=== PATIENT | female | born 1975 | race African-American/Black ===

== ENCOUNTER 2016-05-14 19:25 | Emergency (ER) | payer MEDICAID, SELFPAY ==
[~2016-05-14 19:25] MED LIST: Sodium Chloride 0.9% 1,000 ML BAG ONE
[2016-05-14 21:21] LABS: ALT (SGPT) 14 U/L (0-55); AST (SGOT) 16 U/L (5-34); Albumin 3.4 g/dL (3.5-5.0); Alkaline Phosphatase 79 U/L (40-150); Anion Gap 15 mmol/L (10-20); BUN (Urea Nitrogen) 8 mg/dL (7.0-18.7); Bilirubin, Total 0.5 mg/dL (0.2-1.2); Calc. Creatinine Clearance 0 mL/min (70-130); Calcium 8.8 mg/dL (7.8-10.44); Carbon Dioxide 22 mmol/L (22-29); Chloride 102 mmol/L (98-107); Estimated GFR-MDRD 87; Globulin 3.5 g/dL (2.4-3.5); Glucose 265 mg/dL (70-105); Lipase 19 U/L (8-78); Potassium 3.9 mmol/L (3.5-5.1); Protein, Total 6.9 g/dL (6.0-8.3); Sodium 135 mmol/L (136-145)
[2016-05-14 21:22] LABS: CKMB 0.9 ng/mL (0-6.6); Troponin I Less than 0.010 ng/mL (< 0.028)
[2016-05-14 21:36] LABS: #Basophils 0.1 thou/uL (0.0-0.2); #Eosinphils 0.2 thou/uL (0.0-0.7); #Lymphocytes 3.5 thou/uL (1.20-3.40); #Monocytes 0.5 thou/uL (0.11-0.59); #Neutrophils 5.6 thou/uL (1.40-6.50); %Basophils 0.7 % (0.0-1.0); %Lymphocytes 35.5 % (21.0-51.0); %Monocytes 4.8 % (0.0-10.0); %Neutrophils 57.1 % (42.0-75.0); Hemoglobin 10.9 g/dL (12.0-16.0); MDiff Complete? YES; Mean Corpuscular HGB CONC 30.3 g/dL (32.0-36.0); Mean Corpuscular Hemoglobin 18.7 pg (27.0-31.0); Mean Corpuscular Volume 61.7 fl (81.0-99.0); Mean Platelet Volume 6.9 fL (7.4-10.4); Microcytosis SLIGHT = 6-15 cells (100X) (0-5/hpf); Platelet Count 473 thou/uL (130-400); Polychromasia SLIGHT = 2-3 cells (100X) (0-2/hpf); RBC Distribution Width 14.9 % (11.5-14.5); Red Blood Cell (RBC) Count 5.84 mill/uL (4.20-5.40); White Blood Cell (WBC) Count 9.8 thou/uL (4.8-10.8)
[2016-05-14] MEDS ORDERED: Potassium Chloride 20 MEQ TAB ONE (21:58)
[2016-05-14] MEDS ORDERED: Insulin Regular 300 UNITS/3 ML VIAL ONE (21:58)
[2016-05-14] MEDS ORDERED: Ketorolac Tromethamine 30 MG/ML VIAL ONE (21:58)
--- NOTE | 2016-05-14 22:07 | RAD ---
TWO VIEWS CHEST: 05/14/16 HISTORY: 40-year-old with history of chest pain. PA and lateral views of the chest obtained on 05/14/16. Comparison made to previous exam from 04/06/15. Two views chest demonstrate the lungs to be well aerated. No evidence of active intrathoracic diseas e seen. No evidence of effusions, pneumonia, or pneumothorax seen. IMPRESSION: Unremarkable two views chest. POS: [facility]
[2016-05-14] MEDS ORDERED: Acetaminophen/Codeine 30-300mg Tablet ONE ×2 (22:49)
== END 2016-05-14 22:55 | disposition home or self-care (01) ==
LOC: MADERS 19:25
DX: R07.9 Chest pain, unspecified (principal); E11.65 Type 2 diabetes mellitus with hyperglycemia; Z91.14 Patient's other noncompliance with medication regimen; I10 Essential (primary) hypertension; Z87.891 Personal history of nicotine dependence; Z79.84 Long term (current) use of oral hypoglycemic drugs
CPT/HCPCS: 36416; 71020; 80053; 82553; 83690; 84484; 85025; 85379; 93005; 96361; 96372; 96374; J1815; J1885; J7050

== ENCOUNTER 2016-05-16 10:38 | Outpatient (CLI) | payer MEDICAID ==
[2016-05-16 11:10] LABS: Hemoglobin A1c 10.4 % (4.0-6.0)
[2016-05-16 11:24] LABS: #Basophils 0.1 thou/uL (0.0-0.2); #Eosinphils 0.2 thou/uL (0.0-0.7); #Monocytes 0.4 thou/uL (0.11-0.59); %Basophils 0.7 % (0.0-1.0); %Eosinophils 1.9 % (0.0-10.0); %Lymphocytes 34.3 % (21.0-51.0); %Monocytes 4.9 % (0.0-10.0); %Neutrophils 58.2 % (42.0-75.0); Anisocytosis SLIGHT = 6-15 cells (100X) (0-5/hpf); Hemoglobin 11.6 g/dL (12.0-16.0); Hypochromia SLIGHT = 6-15 cells (100X) (0-5/hpf); MDiff Complete? YES; Mean Corpuscular HGB CONC 30.2 g/dL (32.0-36.0); Mean Corpuscular Hemoglobin 18.8 pg (27.0-31.0); Mean Corpuscular Volume 62.1 fl (81.0-99.0); Mean Platelet Volume 6.9 fL (7.4-10.4); PLT Morphology Comment Appears Increased; Platelet Count 506 thou/uL (130-400); RBC Distribution Width 15.3 % (11.5-14.5); White Blood Cell (WBC) Count 8.6 thou/uL (4.8-10.8)
[2016-05-16 11:33] LABS: ALT (SGPT) 16 U/L (0-55); AST (SGOT) 15 U/L (5-34); Albumin 3.5 g/dL (3.5-5.0); Alkaline Phosphatase 80 U/L (40-150); Anion Gap 12 mmol/L (10-20); BUN (Urea Nitrogen) 9 mg/dL (7.0-18.7); Bilirubin, Total 0.3 mg/dL (0.2-1.2); Calc. Creatinine Clearance 0 mL/min (70-130); Calcium 9.3 mg/dL (7.8-10.44); Carbon Dioxide 23 mmol/L (22-29); Cardiac Risk 5.3 (Less than 4.5); Chloride 102 mmol/L (98-107); Cholesterol 206 mg/dL (< 200 Desired); Estimated GFR-MDRD Greater than 90; Globulin 3.8 g/dL (2.4-3.5); Glucose 243 mg/dL (70-105); HDL Cholesterol 39 mg/dL (>60 Neg Risk); LDL Cholesterol, Calculated 132 mg/dL; Potassium 4.1 mmol/L (3.5-5.1); Protein, Total 7.3 g/dL (6.0-8.3); Sodium 133 mmol/L (136-145); Triglycerides 176 mg/dL (Less than 150)
[2016-05-16 11:53] LABS: Thyroid Stimulating Hormone 0.9032 uIU/mL (0.35-4.94); Vitamin D, 25 Hydroxy Less than 13.0 ng/mL (> 30.0)
[2016-05-16 11:54] LABS: Bilirubin Negative (Negative); Blood, Urine Small (Negative); Clarity Clear (Clear); Glucose, Urine (Dipstick) >=1000 mg/dL (Negative); Leukocyte Negative (Negative); Nitrite Negative (Negative); Protein, Urine (Dipstick) 100 mg/dL (Neg-Trace)
[2016-05-16 12:08] LABS: Bacteria/HPF Rare-Few HPF (None Seen)
[2016-05-16 17:58] LABS: Creatinine, Urine 178.06 mg/dL (47-110)
[2016-05-16 18:00] LABS: Microalbumin Urine 92.8 mg/dL (0.5-50.0); Microalbumin/Creat Ratio 521.2 mg/g (Less than 30)
== END 2016-05-16 10:39 | disposition home or self-care (01) ==
LOC: MADLABBHPM 10:38
PROVIDERS: ATTEND Family Medicine
DX: E11.9 Type 2 diabetes mellitus without complications (principal); N92.0 Excessive and frequent menstruation with regular cycle; I10 Essential (primary) hypertension; N94.6 Dysmenorrhea, unspecified
CPT/HCPCS: 36415; 80053; 80061; 81001; 82043; 82306; 83036; 84443; 85025

== ENCOUNTER 2016-06-20 19:40 | Emergency (ER) | payer MEDICAID, SELFPAY ==
[2016-06-20] MEDS ORDERED: Metoclopramide HCl 10 MG/2 ML VIAL ONE (20:42)
[2016-06-20] MEDS ORDERED: Ketorolac Tromethamine 30 MG/ML VIAL ONE (20:42)
[2016-06-20] MEDS ORDERED: Metoclopramide HCl 10 MG TAB ONE (20:42)
[2016-06-20] MEDS ORDERED: diphenhydrAMINE HCl 50 MG/ML 1 ML VIAL ONE (20:42)
[2016-06-20] MEDS ORDERED: Ondansetron HCl/PF 4 MG/2 ML Vial ONE (20:42)
== END 2016-06-20 22:05 | disposition home or self-care (01) ==
LOC: MADERS 19:40
DX: R51 Headache (principal); E11.9 Type 2 diabetes mellitus without complications; I10 Essential (primary) hypertension; E66.9 Obesity, unspecified; Z79.899 Other long term (current) drug therapy; Z79.84 Long term (current) use of oral hypoglycemic drugs; Z91.14 Patient's other noncompliance with medication regimen; Z87.891 Personal history of nicotine dependence
CPT/HCPCS: 96374; 96375; J1200; J1885; J2405; J2765; J7050

== ENCOUNTER 2017-02-04 21:35 | Emergency (ER) | payer MEDICAID, SELFPAY ==
[2017-02-04 22:40] LABS: Anion Gap 16 mmol/L (10-20); BUN (Urea Nitrogen) 9 mg/dL (7.0-18.7); Calc. Creatinine Clearance 0 mL/min (70-130); Calcium 8.9 mg/dL (7.8-10.44); Carbon Dioxide 23 mmol/L (22-29); Estimated GFR-MDRD Greater than 90; Glucose 376 mg/dL (70-105)
[2017-02-04 22:44] LABS: Anisocytosis SLIGHT = 6-15 cells (100X) (0-5/hpf); CKMB 1.1 ng/mL (0-6.6); Eosinophils 2 % (0-10); Hemoglobin 10.8 g/dL (12.0-16.0); Hypochromia MODERATE=16-30 cells (100X) (0-5/hpf); Lymphocytes 44 % (21-51); MDiff Complete? YES; Mean Corpuscular HGB CONC 29.9 g/dL (32.0-36.0); Mean Corpuscular Hemoglobin 18.7 pg (27.0-31.0); Mean Corpuscular Volume 62.6 fl (81.0-99.0); Mean Platelet Volume 6.8 fL (7.4-10.4); Microcytosis SLIGHT = 6-15 cells (100X) (0-5/hpf); Monocytes 3 % (0-10); Neutrophil 51 % (42-75); Ovalocytes SLIGHT = 2-5 cells (100X) (0-1/hpf); PLT Morphology Comment Appears Adequate; Platelet Count 494 thou/uL (130-400); Poikilocytosis SLIGHT = 6-15 cells (100X) (0-5/hpf); RBC Morphology Abnormal; Red Blood Cell (RBC) Count 5.79 mill/uL (4.20-5.40); Troponin I Less than 0.010 ng/mL (< 0.028); White Blood Cell (WBC) Count 8.9 thou/uL (4.8-10.8)
[2017-02-04 22:49] LABS: Chloride 101 mmol/L (98-107); Potassium 4.6 mmol/L (3.5-5.1); Sodium 135 mmol/L (136-145)
[2017-02-04 22:53] LABS: Bilirubin Negative (Negative); Blood, Urine Negative (Negative); Clarity Clear (Clear); Glucose, Urine (Dipstick) 500 mg/dL (Negative); Leukocyte Negative (Negative); Nitrite Negative (Negative); Pregnancy Test - Urine (BHCG) Negative (Negative); Pregu Control Background? CLEAR/WHITE (CLR/WHITE); Pregu Control Bar Appear? YES (CONTROL BAR); Protein, Urine (Dipstick) 100 mg/dL (Neg-Trace)
[2017-02-04] MEDS ORDERED: Morphine 4 MG/ML VIAL ONE (22:56)
[2017-02-04 22:59] LABS: Bacteria/HPF None Seen HPF (None Seen); Squamous Epithelial 0-3 HPF (0-3)
--- NOTE | 2017-02-04 23:04 | RAD ---
TWO VIEWS CHEST: 02/04/17 HISTORY: Chest pain. PA and lateral views of the chest is obtained on 02/04/17. Comparison made to previous exam from 05/14/16. Two view chest demonstrates the lungs to be well aerated. No evidence of active intrathoracic disease is seen. No evidence of effusions, pneumonia or pneumothorax seen. IMPRESSION: Normal two views chest. POS: [facility]
[2017-02-05] MEDS ORDERED: Acetaminophen 325 MG TAB ONE (00:04)
[2017-02-05] MEDS ORDERED: HYDROcodone/Acetaminophen 10/325 mg Tablet ONE (00:04)
== END 2017-02-05 00:10 | disposition home or self-care (01) ==
LOC: MADERS 21:35
DX: R07.89 Other chest pain (principal); M54.6 Pain in thoracic spine; R10.9 Unspecified abdominal pain; E11.9 Type 2 diabetes mellitus without complications; I10 Essential (primary) hypertension; F17.210 Nicotine dependence, cigarettes, uncomplicated; Z79.84 Long term (current) use of oral hypoglycemic drugs; Z79.899 Other long term (current) drug therapy
CPT/HCPCS: 71020; 80048; 81003; 81015; 81025; 82553; 84484; 85025; 85379; 96374; J2270

== ENCOUNTER 2017-03-10 08:27 | Emergency (ER) | payer MEDICAID | END 2017-03-10 09:05 | disposition home or self-care (01) | LOC: MADERS 08:27 | DX: J11.1 Influenza due to unidentified influenza virus with other respiratory manifestations (principal); E11.9 Type 2 diabetes mellitus without complications; I10 Essential (primary) hypertension; F17.210 Nicotine dependence, cigarettes, uncomplicated; Z79.84 Long term (current) use of oral hypoglycemic drugs; Z79.899 Other long term (current) drug therapy | CPT/HCPCS: 99283 ==

== ENCOUNTER 2017-09-19 04:18 | Emergency (ER) | payer SELFPAY ==
[2017-09-19] MEDS ORDERED: Lidocaine 1% 20 ML MDV ONE (04:41)
[2017-09-19] MEDS ORDERED: Sulfameth/Trimethoprim DS 800-160mg TAB ONE (04:54)
[2017-09-19] MEDS ORDERED: Ondansetron ODT 4 MG TAB ONE (04:54)
== END 2017-09-19 05:08 | disposition home or self-care (01) ==
LOC: MADERS 04:18
DX: L02.411 Cutaneous abscess of right axilla (principal); E11.9 Type 2 diabetes mellitus without complications; I10 Essential (primary) hypertension; F17.210 Nicotine dependence, cigarettes, uncomplicated
CPT/HCPCS: 10060; 87070; 87077; 87186; 87205; J2001; Q0162

== ENCOUNTER 2017-11-09 08:40 | Emergency (ER) | payer SELFPAY | END 2017-11-09 09:15 | disposition home or self-care (01) | LOC: MADERS 08:40 | DX: K59.00 Constipation, unspecified (principal); E11.9 Type 2 diabetes mellitus without complications; I10 Essential (primary) hypertension; F17.210 Nicotine dependence, cigarettes, uncomplicated; Z79.899 Other long term (current) drug therapy; Z79.84 Long term (current) use of oral hypoglycemic drugs | CPT/HCPCS: 99281 ==

== ENCOUNTER 2018-04-07 09:55 | Emergency (ER) | payer SELFPAY | END 2018-04-07 11:05 | disposition home or self-care (01) | LOC: MADERS 09:55 | DX: M54.41 Lumbago with sciatica, right side (principal); E11.9 Type 2 diabetes mellitus without complications; I10 Essential (primary) hypertension; F17.210 Nicotine dependence, cigarettes, uncomplicated; Z79.84 Long term (current) use of oral hypoglycemic drugs; Z79.899 Other long term (current) drug therapy | CPT/HCPCS: 99281 ==

== ENCOUNTER 2018-07-21 12:51 | Emergency (ER) | payer SELFPAY ==
[2018-07-21 15:45] LABS: Prothrombin Time 13.6 SEC (12.0-14.7)
[2018-07-21 15:57] LABS: ALT (SGPT) 12 U/L (8-55); AST (SGOT) 12 U/L (5-34); Albumin 3.5 g/dL (3.5-5.0); Alkaline Phosphatase 73 U/L (40-150); Anion Gap 12 mmol/L (10-20); BUN (Urea Nitrogen) 9 mg/dL (7.0-18.7); Bilirubin, Total 0.9 mg/dL (0.2-1.2); Calc. Creatinine Clearance 0 mL/min (70-130); Calcium 8.9 mg/dL (7.8-10.44); Carbon Dioxide 27 mmol/L (22-29); Chloride 100 mmol/L (98-107); Estimated GFR-MDRD 80; Globulin 3.9 g/dL (2.4-3.5); Glucose 240 mg/dL (70-105); Potassium 3.9 mmol/L (3.5-5.1); Protein, Total 7.4 g/dL (6.0-8.3); Sodium 135 mmol/L (136-145)
[2018-07-21 16:04] LABS: #Basophils 0.1 thou/uL (0.0-0.2); #Monocytes 0.4 thou/uL (0.11-0.59); #Neutrophils 10.2 thou/uL (1.40-6.50); %Eosinophils 0.2 % (0.0-10.0); %Lymphocytes 8.7 % (21.0-51.0); %Neutrophils 87.1 % (42.0-75.0); Hemoglobin 11.7 g/dL (12.0-16.0); MDiff Complete? YES; Mean Corpuscular HGB CONC 29.2 g/dL (32.0-36.0); Mean Corpuscular Hemoglobin 18.5 pg (27.0-31.0); Mean Corpuscular Volume 63.3 fL (78.0-98.0); Mean Platelet Volume 6.3 fL (7.4-10.4); Microcytosis SLIGHT = 6-15 cells (100X) (0-5/hpf); Platelet Count 413 thou/uL (130-400); Polychromasia SLIGHT = 2-3 cells (100X) (0-2/hpf); RBC Distribution Width 15.2 % (11.5-14.5); Red Blood Cell (RBC) Count 6.34 mill/uL (4.20-5.40); White Blood Cell (WBC) Count 11.8 thou/uL (4.8-10.8)
--- NOTE | 2018-07-21 16:30 | RAD ---
CHEST ONE VIEW: 07/21/18 INDICATION: Weakness and dizziness. COMPARISON: Prior exam dated 02/04/17. FINDINGS: The lungs are clear. Heart size is normal. No acute osseous abnormality is evident. IMPRESSION: No acute cardiopulmonary abnormality. POS: [facility]
[2018-07-21] MEDS ORDERED: Morphine 10 MG/ML VIAL ONE (17:44)
[2018-07-21] MEDS ORDERED: Metoclopramide HCl 10 MG/2 ML VIAL ONE (17:45)
[2018-07-21] MEDS ORDERED: methylPREDNISolone Sod Succ/PF 125 MG/2 ML VIAL ONE (17:45)
[2018-07-21 18:06] LABS: BHCG - Serum Negative (NEGATIVE); Pregs Control Background? CLEAR/WHITE (CLR/WHITE); Pregs Control Bar Appear? YES (CONTROL BAR)
[2018-07-21] MEDS ORDERED: Ketorolac Tromethamine 30 MG/ML VIAL ONE (19:21)
[2018-07-21] MEDS ORDERED: Morphine 4 MG/ML VIAL ONE (19:21)
== END 2018-07-21 19:32 | disposition home or self-care (01) ==
LOC: MADERS 12:51
DX: B34.9 Viral infection, unspecified (principal); I10 Essential (primary) hypertension; E11.9 Type 2 diabetes mellitus without complications; F17.210 Nicotine dependence, cigarettes, uncomplicated; Z79.84 Long term (current) use of oral hypoglycemic drugs; Z79.899 Other long term (current) drug therapy
CPT/HCPCS: 36415; 71045; 80053; 83880; 84484; 84703; 85025; 85610; 93005; 96374; 96375; 96376; J1885; J2270; J2765; J2930

== ENCOUNTER 2019-02-07 14:24 | Emergency (ER) | payer SELFPAY ==
[2019-02-07 14:45] LABS: Bilirubin Small (Negative); Blood, Urine Large (Negative); Clarity Slightly Cloudy (Clear); Glucose, Urine (Dipstick) >=1000 mg/dL (Negative); Leukocyte Negative (Negative); Nitrite Positive (Negative); Protein, Urine (Dipstick) > or equal to 300 mg/dL (Neg-Trace)
[2019-02-07 14:48] LABS: Pregnancy Test - Urine (BHCG) Negative (Negative); Pregu Control Background? CLEAR/WHITE (CLR/WHITE); Pregu Control Bar Appear? YES (CONTROL BAR)
[2019-02-07 15:02] LABS: Bacteria/HPF 1+ HPF (None Seen); RBC/HPF Greater than 50 HPF (0-3); Squamous Epithelial None Seen HPF (0-3); WBC/HPF Greater Than 50 HPF (0-3)
[2019-02-07] MEDS ORDERED: cefTRIAXone\\ROCEPHIN 1 GM VIAL ONE (15:13)
== END 2019-02-07 15:46 | disposition home or self-care (01) ==
LOC: MADERS 14:24
DX: N12 Tubulo-interstitial nephritis, not specified as acute or chronic (principal); I10 Essential (primary) hypertension; E11.9 Type 2 diabetes mellitus without complications; F17.210 Nicotine dependence, cigarettes, uncomplicated; Z79.899 Other long term (current) drug therapy; Z79.84 Long term (current) use of oral hypoglycemic drugs
CPT/HCPCS: 81003; 81015; 81025; 96372; 99284; J0696

== ENCOUNTER 2019-10-15 16:24 | Emergency (ER) | payer SELFPAY ==
[2019-10-15] MEDS ORDERED: Lidocaine 1% w/Epinephrine 1:100K 20 ML VIAL ONE (16:48)
[2019-10-15] MEDS ORDERED: Ibuprofen 800 MG TAB ONE (17:18)
[2019-10-15] MEDS ORDERED: Acetaminophen 500 MG TAB ONE (17:18)
[2019-10-15] MEDS ORDERED: Clindamycin 150 MG CAP ONE (17:18)
== END 2019-10-15 17:25 | disposition home or self-care (01) ==
LOC: MADERS 16:24
DX: L02.212 Cutaneous abscess of back [any part, except buttock and flank] (principal); E11.9 Type 2 diabetes mellitus without complications; I10 Essential (primary) hypertension; F17.210 Nicotine dependence, cigarettes, uncomplicated; Z79.899 Other long term (current) drug therapy; Z79.84 Long term (current) use of oral hypoglycemic drugs
CPT/HCPCS: 10060

== ENCOUNTER 2020-09-02 08:04 | Emergency (ER) | payer SELFPAY ==
[2020-09-02 08:47] LABS: Bilirubin Negative (Negative); Blood, Urine Trace (Negative); Glucose, Urine (Dipstick) Negative (Negative); Ketone, Urine Negative (Negative); Leukocyte Negative (Negative); Nitrite Negative (Negative); Protein, Urine (Dipstick) > or equal to 300 mg/dL (Neg-Trace); pH, Urine 5.5 (5.0-9.0)
[2020-09-02 08:50] LABS: Clarity Hazy (Clear)
[2020-09-02 08:51] LABS: Bacteria/HPF 1+ HPF (None Seen); RBC/HPF 0-3 HPF (0-3); Specific Gravity, Urine 1.025 (1.002-1.036)
[2020-09-02] MEDS ORDERED: Ketorolac Tromethamine 60 MG/2 ML VIAL ONE (09:02)
[2020-09-02] MEDS ORDERED: Ondansetron ODT 4 MG TAB ONE (09:02)
[2020-09-02 09:06] LABS: Pregnancy Test - Urine (BHCG) Negative (Negative); Pregu Control Background? CLEAR/WHITE (CLR/WHITE); Pregu Control Bar Appear? YES (CONTROL BAR); Specific Gravity 1.025 (1.002-1.036)
== END 2020-09-02 09:55 | disposition home or self-care (01) ==
LOC: MADERS 08:04
DX: M54.5 Low back pain (principal); R10.9 Unspecified abdominal pain; E11.9 Type 2 diabetes mellitus without complications; I10 Essential (primary) hypertension; F17.210 Nicotine dependence, cigarettes, uncomplicated
CPT/HCPCS: 36416; 74176; 81003; 81015; 81025; 96372; J1885; Q0162

== ENCOUNTER 2020-11-15 08:00 | Emergency (ER) | payer OTHER, SELFPAY ==
[2020-11-15] MEDS ORDERED: HYDROcodone/Acetaminophen 5/325 mg Tablet ONE (08:55)
[2020-11-15] MEDS ORDERED: predniSONE 20 MG TAB ONE (08:56)
== END 2020-11-15 09:00 | disposition home or self-care (01) ==
LOC: MADERS 08:00
DX: M54.41 Lumbago with sciatica, right side (principal); E11.9 Type 2 diabetes mellitus without complications; I10 Essential (primary) hypertension; F17.210 Nicotine dependence, cigarettes, uncomplicated; R26.9 Unspecified abnormalities of gait and mobility
CPT/HCPCS: 99283; J7512

== ENCOUNTER 2021-04-14 19:40 | Emergency (ER) | payer OTHER, SELFPAY ==
[2021-04-14] MEDS ORDERED: predniSONE 20 MG TAB ONE (20:09)
[2021-04-14] MEDS ORDERED: predniSONE 10 MG TAB ONE (20:09)
[2021-04-15 17:15] LABS: SARS-CoV-2 PCR by NAA DETECTED (NotDetected)
== END 2021-04-14 21:24 | disposition home or self-care (01) ==
LOC: MADERS 19:40
DX: U07.1 COVID-19 (principal); E11.9 Type 2 diabetes mellitus without complications; F17.210 Nicotine dependence, cigarettes, uncomplicated
CPT/HCPCS: 71045; 87804; J7512; J7620; U0003; U0005

== ENCOUNTER 2021-11-19 07:36 | Emergency (ER) | payer SELFPAY ==
[2021-11-19] MEDS ORDERED: Ketorolac Tromethamine 30 MG/ML VIAL ONE (08:35)
[2021-11-19] MEDS ORDERED: Orphenadrine Citrate 60 MG/2 ML VIAL ONE (08:35)
== END 2021-11-19 08:50 | disposition home or self-care (01) ==
LOC: MADERS 07:36
DX: M54.41 Lumbago with sciatica, right side (principal); E11.9 Type 2 diabetes mellitus without complications; I10 Essential (primary) hypertension; F17.210 Nicotine dependence, cigarettes, uncomplicated
CPT/HCPCS: 96372; 99283; J1885; J2360

== ENCOUNTER 2022-03-03 13:10 | Emergency (ER) | payer OTHER ==
[~2022-03-03 13:10] MED LIST changes: +Iopamidol 370 76% 100 ML VIAL ONE; -Sodium Chloride 0.9% 1,000 ML BAG ONE
[2022-03-03 13:57] LABS: Bilirubin Negative (Negative); Blood, Urine Trace (Negative); Clarity Slightly Cloudy (Clear); Glucose, Urine (Dipstick) 500 mg/dL (Negative); Ketone, Urine Trace mg/dL (Negative); Leukocyte Negative (Negative); Nitrite Positive (Negative); Protein, Urine (Dipstick) > or equal to 300 mg/dL (Neg-Trace); pH, Urine 5.5 (5.0-9.0)
[2022-03-03 14:00] LABS: RBC/HPF 0-3 HPF (0-3); Specific Gravity, Urine 1.033 (1.002-1.036)
[2022-03-03 14:01] LABS: Bacteria/HPF 4+ HPF (None Seen); WBC/HPF 0-3 HPF (0-3)
[2022-03-03 15:26] LABS: #Eosinphils 0.2 thou/uL (0.0-0.7); #Lymphocytes 2.6 thou/uL (1.20-3.40); #Monocytes 0.5 thou/uL (0.11-0.59); #Neutrophils 5.5 thou/uL (1.40-6.50); %Basophils 0.4 % (0.0-1.0); %Eosinophils 1.9 % (0.0-10.0); %Lymphocytes 29.4 % (21.0-51.0); %Monocytes 5.3 % (0.0-10.0); Mean Corpuscular HGB CONC 29.9 g/dL (32.0-36.0); Mean Corpuscular Hemoglobin 19.1 pg (27.0-31.0); Mean Corpuscular Volume 63.8 fl (78.0-98.0); Mean Platelet Volume 6.5 fL (7.4-10.4); Platelet Count 478 10x3/uL (130-400); RBC Distribution Width 14.5 % (11.5-14.5); Red Blood Cell (RBC) Count 5.75 mill/uL (4.20-5.40); White Blood Cell (WBC) Count 8.8 10x3/uL (4.8-10.8)
[2022-03-03 15:27] LABS: Anisocytosis SLIGHT = 6-15 cells (100X) (0-5/hpf); Hypochromia SLIGHT = 6-15 cells (100X) (0-5/hpf); MDiff Complete? YES; Microcytosis SLIGHT = 6-15 cells (100X) (0-5/hpf); Platelet Morphology Comment Appears Increased
[2022-03-03 15:28] LABS: Pregnancy Test - Urine (BHCG) Negative (Negative); Pregu Control Background? CLEAR/WHITE (CLR/WHITE); Pregu Control Bar Appear? YES (CONTROL BAR); Specific Gravity 1.033 (1.002-1.036)
[2022-03-03 15:34] LABS: ALT (SGPT) 11 U/L (8-55); AST (SGOT) 11 U/L (5-34); Albumin 3.5 g/dL (3.5-5.0); Alkaline Phosphatase 66 U/L (40-110); Anion Gap 14 mmol/L (10-20); BUN (Urea Nitrogen) 11 mg/dL (7.0-18.7); Bilirubin, Total 0.4 mg/dL (0.2-1.2); Calc. Creatinine Clearance 0 mL/min (70-130); Calcium 9.2 mg/dL (7.8-10.44); Carbon Dioxide 26 mmol/L (22-29); Chloride 103 mmol/L (98-107); Estimated GFR 82; Globulin 3.8 g/dL (2.4-3.5); Glucose 182 mg/dL (70-105); Potassium 3.9 mmol/L (3.5-5.1); Protein, Total 7.3 g/dL (6.0-8.3); Sodium 139 mmol/L (136-145)
[2022-03-03] MEDS ORDERED: Ketorolac Tromethamine 30 MG/ML VIAL ONE (17:24)
== END 2022-03-03 17:37 | disposition home or self-care (01) ==
LOC: MADERS 13:10
DX: R10.30 Lower abdominal pain, unspecified (principal); M54.50 Low back pain, unspecified; I10 Essential (primary) hypertension; E11.9 Type 2 diabetes mellitus without complications; F17.210 Nicotine dependence, cigarettes, uncomplicated
CPT/HCPCS: 36415; 74177; 80053; 81003; 81015; 81025; 85025; 87077; 87086; 87186; 96374; J1885; Q9967

== ENCOUNTER 2022-07-15 14:33 | Emergency (ER) | payer OTHER ==
[2022-07-15 15:42] LABS: #Basophils 0.1 thou/uL (0.0-0.2); #Eosinphils 0.2 thou/uL (0.0-0.7); #Lymphocytes 2.7 thou/uL (1.20-3.40); #Monocytes 0.4 thou/uL (0.11-0.59); #Neutrophils 4.1 thou/uL (1.40-6.50); %Basophils 1.6 % (0.0-1.0); %Eosinophils 2.7 % (0.0-10.0); %Lymphocytes 35.9 % (21.0-51.0); %Monocytes 4.6 % (0.0-10.0); %Neutrophils 55.2 % (42.0-75.0); Hemoglobin 11.5 g/dL (12.0-16.0); Mean Corpuscular HGB CONC 30.3 g/dL (32.0-36.0); Mean Corpuscular Hemoglobin 19.2 pg (27.0-31.0); Mean Corpuscular Volume 63.5 fl (78.0-98.0); Mean Platelet Volume 8.2 fL (7.4-10.4); Platelet Count 438 10x3/uL (130-400); RBC Distribution Width 15.4 % (11.5-14.5); Red Blood Cell (RBC) Count 5.98 mill/uL (4.20-5.40); White Blood Cell (WBC) Count 7.5 10x3/uL (4.8-10.8)
[2022-07-15 15:49] LABS: Microcytosis SLIGHT = 6-15 cells (100X) (0-5/hpf)
[2022-07-15 15:50] LABS: Polychromasia SLIGHT = 2-3 cells (100X) (0-2/hpf)
[2022-07-15 15:52] LABS: Anion Gap 11 mmol/L (10-20); BUN (Urea Nitrogen) 8 mg/dL (7.0-18.7); Calc. Creatinine Clearance 0 mL/min (70-130); Carbon Dioxide 25 mmol/L (22-29); Chloride 105 mmol/L (98-107); Estimated GFR 106; Glucose 148 mg/dL (70-105); Potassium 3.8 mmol/L (3.5-5.1); Sodium 137 mmol/L (136-145)
== END 2022-07-15 17:08 | disposition home or self-care (01) ==
LOC: MADERS 14:33
DX: J03.90 Acute tonsillitis, unspecified (principal); I10 Essential (primary) hypertension; E11.9 Type 2 diabetes mellitus without complications; E66.9 Obesity, unspecified; F17.210 Nicotine dependence, cigarettes, uncomplicated
CPT/HCPCS: 36415; 70491; 80048; 85025; 87081; 87430; Q9967

== ENCOUNTER 2022-10-17 21:55 | Emergency (ER) | payer OTHER, SELFPAY ==
[2022-10-17] MEDS ORDERED: Nitroglycerin 0.4 MG TAB 1 EACH ONE (22:41)
[2022-10-17] MEDS ORDERED: Aspirin Chewable 81 MG TAB ONE (22:42)
[2022-10-17 22:47] LABS: BHCG - Serum Negative (NEGATIVE); Pregs Control Background? CLEAR/WHITE (CLR/WHITE); Pregs Control Bar Appear? YES (CONTROL BAR)
[2022-10-17 22:53] LABS: #Basophils 0.1 thou/uL (0.0-0.2); #Eosinphils 0.2 thou/uL (0.0-0.7); #Lymphocytes 3.2 thou/uL (1.20-3.40); #Monocytes 0.3 thou/uL (0.11-0.59); #Neutrophils 4.7 thou/uL (1.40-6.50); %Basophils 0.7 % (0.0-1.0); %Eosinophils 1.9 % (0.0-10.0); %Lymphocytes 38.3 % (21.0-51.0); %Neutrophils 56.2 % (42.0-75.0); Anisocytosis SLIGHT = 6-15 cells (100X) (0-5/hpf); Hematocrit 37.4 % (36.0-47.0); Hemoglobin 11.5 g/dL (12.0-16.0); MDiff Complete? YES; Mean Corpuscular HGB CONC 30.7 g/dL (32.0-36.0); Mean Corpuscular Hemoglobin 19.6 pg (27.0-31.0); Mean Corpuscular Volume 63.9 fl (78.0-98.0); Mean Platelet Volume 7.8 fL (7.4-10.4); Microcytosis SLIGHT = 6-15 cells (100X) (0-5/hpf); Ovalocytes SLIGHT = 2-5 cells (100X) (0-1/hpf); Platelet Adequacy Comment Appears Adequate; Platelet Count 441 10x3/uL (130-400); RBC Distribution Width 15.5 % (11.5-14.5); Red Blood Cell (RBC) Count 5.85 mill/uL (4.20-5.40); White Blood Cell (WBC) Count 8.3 10x3/uL (4.8-10.8)
[2022-10-17] MEDS ORDERED: Acetaminophen 325 MG TAB ONE ×2 (22:55)
[2022-10-17] MEDS ORDERED: Lactated Ringer's 1,000 ML ONE (22:55)
[2022-10-17 22:58] LABS: ALT (SGPT) 11 U/L (8-55); AST (SGOT) 15 U/L (5-34); Albumin 3.6 g/dL (3.5-5.0); Alkaline Phosphatase 73 U/L (40-110); Anion Gap 15 mmol/L (10-20); BUN (Urea Nitrogen) 8 mg/dL (7.0-18.7); Bilirubin, Total 0.4 mg/dL (0.2-1.2); Calc. Creatinine Clearance 0 mL/min (70-130); Calcium 9.4 mg/dL (7.8-10.44); Carbon Dioxide 24 mmol/L (22-29); Chloride 103 mmol/L (98-107); Estimated GFR 89; Globulin 3.4 g/dL (2.4-3.5); Glucose 259 mg/dL (70-105); Lipase 18 U/L (8-78); Sodium 138 mmol/L (136-145)
[2022-10-17 22:59] LABS: Troponin I Less than 0.010 ng/mL (< 0.028)
[2022-10-18 02:53] LABS: Troponin I Less than 0.010 ng/mL (< 0.028)
[2022-10-18] MEDS ORDERED: Ondansetron ODT 4 MG TAB ONE (04:28)
[2022-10-18 04:55] LABS: Troponin I Less than 0.010 ng/mL (< 0.028)
[2022-10-18 06:33] LABS: Troponin I Less than 0.010 ng/mL (< 0.028)
[2022-10-18] MEDS ORDERED: Acetaminophen 500 MG TAB ONE (13:19)
== END 2022-10-18 15:18 | disposition short-term general hospital (02) ==
LOC: MADERS 21:55
DX: R07.89 Other chest pain (principal); E11.65 Type 2 diabetes mellitus with hyperglycemia; I10 Essential (primary) hypertension; E66.9 Obesity, unspecified; E11.9 Type 2 diabetes mellitus without complications; F17.210 Nicotine dependence, cigarettes, uncomplicated; Z79.84 Long term (current) use of oral hypoglycemic drugs; Z79.899 Other long term (current) drug therapy
CPT/HCPCS: 71046; 80053; 83690; 84484; 84703; 85025; 93005; 94760; 96360; J7120; Q0162

== ENCOUNTER 2022-10-23 21:51 | Emergency (ER) | payer SELFPAY ==
[~2022-10-23 21:51] MED LIST changes: -Iopamidol 370 76% 100 ML VIAL ONE; +Sodium Chloride 0.9% 500 ML BAG ONE
[2022-10-23 22:24] LABS: Anisocytosis SLIGHT = 6-15 cells (100X) (0-5/hpf); Hematocrit 36.7 % (36.0-47.0); Hemoglobin 11.6 g/dL (12.0-16.0); Hypochromia SLIGHT = 6-15 cells (100X) (0-5/hpf); Lymphocytes 34 % (21-51); MDiff Complete? YES; Mean Corpuscular HGB CONC 31.5 g/dL (32.0-36.0); Mean Corpuscular Hemoglobin 19.9 pg (27.0-31.0); Mean Corpuscular Volume 63.3 fl (78.0-98.0); Microcytosis SLIGHT = 6-15 cells (100X) (0-5/hpf); Monocytes 6 % (0-10); Neutrophil 60 % (42-75); Platelet Adequacy Comment Appears Adequate; Platelet Count 435 10x3/uL (130-400); Polychromasia SLIGHT = 2-3 cells (100X) (0-2/hpf); RBC Distribution Width 15.4 % (11.5-14.5); White Blood Cell (WBC) Count 8.6 10x3/uL (4.8-10.8)
[2022-10-23 22:25] LABS: BHCG - Serum Negative (NEGATIVE); Pregs Control Background? CLEAR/WHITE (CLR/WHITE); Pregs Control Bar Appear? YES (CONTROL BAR)
[2022-10-23] MEDS ORDERED: Aspirin Chewable 81 MG TAB ONE (22:33)
[2022-10-23 22:34] LABS: ALT (SGPT) 16 U/L (8-55); AST (SGOT) 15 U/L (5-34); Albumin 3.6 g/dL (3.5-5.0); Alkaline Phosphatase 69 U/L (40-110); Anion Gap 15 mmol/L (10-20); BUN (Urea Nitrogen) 12 mg/dL (7.0-18.7); Bilirubin, Total 0.4 mg/dL (0.2-1.2); Calc. Creatinine Clearance 0 mL/min (70-130); Calcium 9.4 mg/dL (7.8-10.44); Carbon Dioxide 23 mmol/L (22-29); Chloride 101 mmol/L (98-107); Estimated GFR 70; Globulin 3.4 g/dL (2.4-3.5); Glucose 259 mg/dL (70-105); Lipase 26 U/L (8-78); Magnesium 1.5 mg/dL (1.6-2.6); Potassium 4.4 mmol/L (3.5-5.1); Sodium 135 mmol/L (136-145)
[2022-10-23 22:40] LABS: Troponin I Less than 0.010 ng/mL (< 0.028)
[2022-10-23] MEDS ORDERED: Magnesium Oxide 400 MG TAB ONE (22:53)
[2022-10-23] MEDS ORDERED: Ketorolac Tromethamine 30 MG/ML VIAL ONE (22:53)
[2022-10-24 01:32] LABS: Troponin I Less than 0.010 ng/mL (< 0.028)
== END 2022-10-24 01:56 | disposition home or self-care (01) ==
LOC: MADERS 21:51
DX: M94.0 Chondrocostal junction syndrome [Tietze] (principal); R07.89 Other chest pain; E83.42 Hypomagnesemia; I25.10 Atherosclerotic heart disease of native coronary artery without angina pectoris; E78.00 Pure hypercholesterolemia, unspecified; I10 Essential (primary) hypertension; E66.9 Obesity, unspecified; F17.210 Nicotine dependence, cigarettes, uncomplicated; Z79.899 Other long term (current) drug therapy; Z79.82 Long term (current) use of aspirin
CPT/HCPCS: 71045; 80053; 83690; 83735; 83880; 84484; 84703; 85025; 93005; 96374; J1885; J7030

== ENCOUNTER 2024-01-19 07:09 | Emergency (ER) | payer OTHER | END 2024-01-19 08:00 | disposition home or self-care (01) | LOC: MADERS 07:09 | DX: B34.9 Viral infection, unspecified (principal); I10 Essential (primary) hypertension; E11.9 Type 2 diabetes mellitus without complications; E78.5 Hyperlipidemia, unspecified; E66.9 Obesity, unspecified; F17.210 Nicotine dependence, cigarettes, uncomplicated; Z79.899 Other long term (current) drug therapy; Z79.84 Long term (current) use of oral hypoglycemic drugs; Z79.82 Long term (current) use of aspirin; Z79.85 Long-term (current) use of injectable non-insulin antidiabetic drugs | CPT/HCPCS: 87428; 99283 ==

== ENCOUNTER 2024-07-15 12:38 | Emergency (ER) | payer OTHER ==
[2024-07-15] MEDS ORDERED: Sodium Chloride 0.9% 1,000 ML ONE (13:45)
[2024-07-15] MEDS ORDERED: Ondansetron PF 4 MG/2 ML Vial ONE (13:45)
[2024-07-15 14:00] LABS: #Basophils 0.1 thou/uL (0.0-0.2); #Eosinophils 0.2 thou/uL (0.0-0.7); #Lymphocytes 2.5 thou/uL (1.20-3.40); #Monocytes 0.4 thou/uL (0.11-0.59); %Basophils 0.8 % (0.0-1.0); %Lymphocytes 34.9 % (21.0-51.0); %Monocytes 4.9 % (0.0-10.0); %Neutrophils 56.4 % (42.0-75.0); Anisocytosis SLIGHT = 6-15 cells (100X) (0-5/hpf); Hematocrit 38.2 % (36.0-47.0); Hypochromia SLIGHT = 6-15 cells (100X) (0-5/hpf); MDiff Complete? YES; Mean Corpuscular HGB CONC 28.8 g/dL (32.0-36.0); Mean Corpuscular Hemoglobin 19.3 pg (27.0-31.0); Mean Corpuscular Volume 66.9 fl (78.0-98.0); Mean Platelet Volume 6.7 fL (7.4-10.4); Microcytosis SLIGHT = 6-15 cells (100X) (0-5/hpf); Platelet Adequacy Comment Appears Increased; Platelet Count 459 10x3/uL (130-400); RBC Distribution Width 14.8 % (11.5-14.5); Red Blood Cell (RBC) Count 5.72 mill/uL (4.20-5.40)
[2024-07-15 14:08] LABS: ALT (SGPT) 14 U/L (Less than 34); AST (SGOT) 17 U/L (11-34); Albumin 3.1 g/dL (3.1-4.5); Alkaline Phosphatase 57 U/L (40-110); Anion Gap 12 mmol/L (10-20); BUN (Urea Nitrogen) 10 mg/dL (7.0-18.7); Bilirubin, Total 0.5 mg/dL (0.3-1.2); Calc. Creatinine Clearance 0 mL/min (70-130); Calcium 8.5 mg/dL (7.8-10.44); Carbon Dioxide 21 mmol/L (22-29); Chloride 109 mmol/L (98-107); Estimated GFR 109; Globulin 3.8 g/dL (2.4-3.5); Glucose 108 mg/dL (70-105); Lipase 11 U/L (8-78); Magnesium 1.6 mg/dL (1.6-2.6); Potassium 3.7 mmol/L (3.5-5.1); Protein, Total 6.9 g/dL (6.0-8.3); Sodium 138 mmol/L (136-145)
== END 2024-07-15 15:06 | disposition home or self-care (01) ==
LOC: MADERS 12:38
DX: K52.9 Noninfective gastroenteritis and colitis, unspecified (principal); I25.2 Old myocardial infarction; E11.9 Type 2 diabetes mellitus without complications; I10 Essential (primary) hypertension; I25.10 Atherosclerotic heart disease of native coronary artery without angina pectoris; E66.9 Obesity, unspecified; F17.210 Nicotine dependence, cigarettes, uncomplicated; E78.00 Pure hypercholesterolemia, unspecified; Z79.899 Other long term (current) drug therapy; Z79.82 Long term (current) use of aspirin; Z79.84 Long term (current) use of oral hypoglycemic drugs
CPT/HCPCS: 80053; 83690; 83735; 85025; 96361; 96374; J2405; J7030

== ENCOUNTER 2024-12-14 05:18 | Emergency (ER) | payer OTHER ==
[2024-12-14] MEDS ORDERED: Aspirin Chewable 81 MG TAB ONE (05:49)
[2024-12-14] MEDS ORDERED: Nitroglycerin 0.4 MG TAB 1 EACH ONE (05:49)
[2024-12-14 06:09] LABS: #Basophils 0.0 thou/uL (0.0-0.2); #Eosinophils 0.1 thou/uL (0.0-0.7); #Lymphocytes 2.5 thou/uL (1.20-3.40); #Monocytes 0.3 thou/uL (0.11-0.59); #Neutrophils 4.0 thou/uL (1.40-6.50); %Basophils 0.7 % (0.0-1.0); %Eosinophils 1.5 % (0.0-10.0); %Lymphocytes 36.1 % (21.0-51.0); %Monocytes 3.7 % (0.0-10.0); %Neutrophils 57.9 % (42.0-75.0); Hematocrit 47.1 % (36.0-47.0); Hemoglobin 13.9 g/dL (12.0-16.0); Mean Corpuscular Hemoglobin 20.0 pg (27.0-31.0); Mean Corpuscular Volume 67.6 fl (78.0-98.0); Platelet Count 410 10x3/uL (130-400); Red Blood Cell (RBC) Count 6.98 mill/uL (4.20-5.40); White Blood Cell (WBC) Count 6.9 10x3/uL (4.8-10.8)
[2024-12-14 06:12] LABS: Anisocytosis SLIGHT = 6-15 cells (100X) (0-5/hpf); Microcytosis SLIGHT = 6-15 cells (100X) (0-5/hpf); Platelet Adequacy Comment Appears Adequate
[2024-12-14 06:13] LABS: Troponin I Less than 0.010 ng/mL (< 0.028)
[2024-12-14 06:15] LABS: ALT (SGPT) 15 U/L (Less than 34); AST (SGOT) 15 U/L (11-34); Albumin 3.4 g/dL (3.1-4.5); Alkaline Phosphatase 85 U/L (40-110); Anion Gap 18 mmol/L (10-20); BUN (Urea Nitrogen) 10 mg/dL (7.0-18.7); Bilirubin, Total 0.5 mg/dL (0.3-1.2); Calc. Creatinine Clearance 0 mL/min (70-130); Calcium 9.1 mg/dL (7.8-10.44); Carbon Dioxide 23 mmol/L (22-29); Chloride 103 mmol/L (98-107); Globulin 3.8 g/dL (2.4-3.5); Glucose 392 mg/dL (70-105); Potassium 3.9 mmol/L (3.5-5.1); Sodium 140 mmol/L (136-145)
[2024-12-14] MEDS ORDERED: Ondansetron PF 4 MG/2 ML Vial ONE (06:53)
[2024-12-14 07:42] LABS: Troponin I Less than 0.010 ng/mL (< 0.028)
== END 2024-12-14 08:00 | disposition home or self-care (01) ==
LOC: MADERS 05:18
DX: R07.89 Other chest pain (principal); I25.2 Old myocardial infarction; E11.9 Type 2 diabetes mellitus without complications; E78.5 Hyperlipidemia, unspecified; I10 Essential (primary) hypertension; I25.10 Atherosclerotic heart disease of native coronary artery without angina pectoris; F17.210 Nicotine dependence, cigarettes, uncomplicated; Z79.84 Long term (current) use of oral hypoglycemic drugs; Z79.82 Long term (current) use of aspirin; Z79.899 Other long term (current) drug therapy
CPT/HCPCS: 71045; 80053; 83690; 84484; 85025; 93005; 96374; J2405

== ENCOUNTER 2025-01-22 07:01 | Emergency (ER) | payer OTHER ==
[2025-01-22] MEDS ORDERED: Dexamethasone 4 MG TAB ONE (07:42)
== END 2025-01-22 08:08 | disposition home or self-care (01) ==
LOC: MADERS 07:01
DX: J44.1 Chronic obstructive pulmonary disease with (acute) exacerbation (principal); I10 Essential (primary) hypertension; I25.10 Atherosclerotic heart disease of native coronary artery without angina pectoris; E11.9 Type 2 diabetes mellitus without complications; E78.5 Hyperlipidemia, unspecified; E66.9 Obesity, unspecified; I25.2 Old myocardial infarction; F17.210 Nicotine dependence, cigarettes, uncomplicated; Z79.82 Long term (current) use of aspirin; Z79.899 Other long term (current) drug therapy; Z79.84 Long term (current) use of oral hypoglycemic drugs
CPT/HCPCS: J8540

== ENCOUNTER 2025-01-26 10:57 | Outpatient (CLI) | payer OTHER | END 2025-01-26 10:58 | disposition home or self-care (01) | LOC: MADRAD 10:57 | DX: R05.9 Cough, unspecified (principal) | CPT/HCPCS: 71046 ==

== ENCOUNTER 2025-02-15 19:16 | Emergency (ER) | payer OTHER | END 2025-02-15 20:12 | disposition home or self-care (01) | LOC: MADERS 19:16 | DX: I80.02 Phlebitis and thrombophlebitis of superficial vessels of left lower extremity (principal); I10 Essential (primary) hypertension; I25.10 Atherosclerotic heart disease of native coronary artery without angina pectoris; E11.9 Type 2 diabetes mellitus without complications; E66.9 Obesity, unspecified; I25.2 Old myocardial infarction; F17.210 Nicotine dependence, cigarettes, uncomplicated | CPT/HCPCS: 99283 ==